=== PATIENT | female | born 1995 | race Caucasian/White ===

== ENCOUNTER 2020-12-06 17:09 | Inpatient (IN) | payer BC ==
[2020-12-06] VITALS (24 sets, daily range): BP systolic 80–123; BP diastolic 46–76
[~2020-12-06] VITALS: Ht 170.2 cm; Wt 60.7 kg
[~2020-12-06 17:09] MED LIST: DOCU100C37 PO; IBUP-1780 PO; OXYC1TAB87 PO; PREN-148 PO
[2020-12-06] MEDS ORDERED: D5 LR IV SOLUTION 1,000 ML IV SCH ×2 (19:00→20:30)
[2020-12-06 20:15] LABS: BASOPHILS % (AUTO) 0 % (0-10); EOSINOPHILS % (AUTO) 0 % (0-10); HEMATOCRIT 38 % (35-52); HEMOGLOBIN 12.9 g/dL (11.5-16.0); LYMPHOCYTES # (AUTO) 1.9 10^3/uL (1.0-4.0); LYMPHOCYTES % (AUTO) 17 % (12-44); MEAN CORPUSCULAR HEMOGLOBIN 30 pg (25-34); MEAN CORPUSCULAR HGB CONC 34 g/dL (32-36); MEAN CORPUSCULAR VOLUME 90 fL (80-99); MEAN PLATELET VOLUME 10.7 fL (9.0-12.2); MONOCYTES # (AUTO) 0.9 10^3/uL (0.0-1.0); MONOCYTES % (AUTO) 8 % (0-12); NEUTROPHILS # (AUTO) 8.4 10^3/uL (1.8-7.8); NEUTROPHILS % (AUTO) 74 % (42-75); PLATELET COUNT 239 10^3/uL (130-400); WHITE BLOOD COUNT 11.3 10^3/uL (4.3-11.0)
--- NOTE | 2020-12-06 20:28 | History & Physical ---
History and Physical Date Seen by Provider: Dec 06, 2020 Time Seen by Provider: 20:24 This patient is a 25-year-old 2 para 1 white female who presented with complaint of contractions and pressure. She is 38 6/7 weeks gestation. She had her other delivery at about 38 weeks gestation. She reports that the way she feels now is what she felt when she was in labor at that time. She denies rupture membranes or bleeding. She does report that contractions have been getting stronger through the day. Her GBS culture after 35 weeks gestation was negative. She has had no problems with this to date. Allergies are none Medications are vitamins Medical social and surgical history is all per the antepartum record HEENT exam is normal Neck is supple no lymphadenopathy no thyromegaly Abdomen is gravid soft nontender nondistended Extremities show no clubbing or cyanosis. There is no Homans' sign. Pelvic exam shows a cervix 4 cm dilated 60% effaced -1 station vertex presentation. membranes are not palpable. AROM was attempted but no fluid was released. Scalp electrode was applied to ensure adequate monitoring and to ensure rupture membrane Assessment and plan 38-6/7 weeks gestation in an uncomplicated in a patient that presented in labor with a history of rapid delivery with her f irst . We will allow an epidural. Amniotomy has been performed. At this point we will manage now expectantly 38 6/7 weeks gestation in labor Allergies and Home Medications Allergies Coded Allergies: No Known Drug Allergies (Unverified , 05/16/18) Home Medications Vit #76/Iron,Carb/FA 1 Each Tablet, 1 EACH PO DAILY, (Reported) Patient Home Medication List Home Medication List Reviewed: Yes NINI SHAH MD Dec 06, 2020 20:28
[2020-12-06] MEDS ORDERED: OXYC1TAB87 PO (20:30)
[2020-12-06] MEDS ORDERED: OXYTOCIN PRE-MIX DRIP 500 ML IV SCH (20:30)
[2020-12-06] MEDS ORDERED: DOCU-143 PO (20:30)
[2020-12-06] MEDS ORDERED: IBUP-1780 PO (20:30)
--- NOTE | 2020-12-06 20:30 | Discharge Inst-Surgical ---
Discharge Inst-Surgical Depart Medication/Instructions New, Converted or Re-Newed RX: RX on Chart Consults/Follow Up Patient Instructions: As directed Orders & Referrals Follow Up Appt: Call to make follow up appt. for patient in 4 weeks. Activity Per routine post vaginal delivery instructions. Please call in RX to patient pharmacy. Diet as tolerated Patient may shower or tub bathe as desired. Activity Activity as Tolerated: No Diet Discharge Diet: No Restrictions NINI SHAH MD Dec 06, 2020 20:30
[2020-12-06] MEDS ORDERED: CATHETER FLUSH 10 ML SYR IV SCH (22:00)
[2020-12-06] MEDS ORDERED: fentaNYL 2 mcg/ml BUPIVA 0.125 100 ML ONE (22:14)
[2020-12-06] MEDS ORDERED: BUPIVACAINE 0.25% 30 ML (SENSORCAINE) VIAL ONE (22:31)
[2020-12-06] MEDS ORDERED: fentaNYL INJECTION 100 MCG/2 ML AMP ONE (22:32)
[2020-12-06] MEDS ORDERED: NALOXONE 0.4 MG/ML 1 ML (NARCAN) VIAL IV PRN (23:30)
[2020-12-06] MEDS ORDERED: CATHETER FLUSH 10 ML SYR IV PRN (23:30)
[2020-12-06] MEDS ORDERED: fentaNYL 2 mcg/ml BUPIVA 0.125 100 ML IV SCH (23:30)
[2020-12-06] MEDS ORDERED: LACTATED RINGERS 1,000 ML IV ONE (23:30)
[2020-12-07] VITALS (42 sets, daily range): BP systolic 73–120; BP diastolic 41–72
[2020-12-07] MEDS ORDERED: OXYTOCIN PRE-MIX DRIP 500 ML IV SCH ×2 (04:30→07:45)
[2020-12-07] MEDS ORDERED: ONDANSETRON 4 MG/2 ML (SDV) Z0FRAN ONE (06:14)
[2020-12-07] MEDS ORDERED: ONDANSETRON 4 MG/2 ML (SDV) Z0FRAN IV ONE (06:23)
[2020-12-07] MEDS ORDERED: oxyCODONE/APAP 5/325MG (PERCOCET 5) TABLET PO PRN (07:45)
[2020-12-07] MEDS ORDERED: BENZOCAINE/MENTHOL (DERMOPLAST) 60 ML CAN TP PRN (07:45)
[2020-12-07] MEDS ORDERED: ONDANSETRON 4 MG/2 ML (SDV) Z0FRAN IVP PRN (07:45)
[2020-12-07] MEDS ORDERED: TETANUS,DIPTH,PERTUSS P/F (BOOSTRIX) 0.5 ML VIAL IM ONE (07:45)
[2020-12-07] MEDS ORDERED: MEASLES,MUMPS,RUBELLA 1 EA INJ SC ONE (07:45)
[2020-12-07] MEDS: KETOROLAC 30 MG/ML VIAL IVP SCH ×2 (09:45→15:37)
--- NOTE | 2020-12-07 11:59 | OPERATIVE REPORT ---
DATE OF SERVICE: 12/07/2020 DELIVERY NOTE The patient delivered by term spontaneous vaginal delivery at 39 weeks gestation, a viable male infant with Apgars of 9 and 9 at 1 and 5 minutes respectively. Weight was 6.4 ounces. time of 7:20 and cord blood pH was 7.26. The was delivered over a first-degree perineal laceration under epidural analgesia. The was bulb suctioned on delivery of the head and again on completion of delivery. Umbilical cord was doubly clamped and cut. The baby was passed to mother's abdomen. The placenta delivered promptly spontaneously Alvares. It was a normal placenta with a small accessory lobe, it did have a 3-vessel cord. The placenta was sent to pathology for permanent section. Cord bloods were obtained prior to delivery of the placenta. The cervix, vagina, rectum, and perineum were examined and found intact, except for small periurethral abrasions that were hemostatic and required no repair and a first-degree perineal laceration that was repaired in the usual manner without difficulty to good reapproximation with a single suture of 3-0 Vicryl Rapide. Sponge and needle counts were correct on completion of the delivery. Blood loss was around 100 mL. The patient tolerated the delivery well and remained in the LDR for recovery. The baby remained with the mom. Job ID: [id number] DocumentID: [id number] Dictated Date: 12/07/2020 07:35:43 Wet Process Technician Date: 12/07/2020 11:59:10 Dictated By: NINI SHAH MD
[2020-12-07 14:19] LABS: BILIRUBIN,URINE NEGATIVE (NEGATIVE); CLARITY,URINE OTHER; COLOR,URINE YELLOW; GLUCOSE, URINE (UA) NEGATIVE (NEGATIVE); KETONES,URINE NEGATIVE (NEGATIVE); LEUKOCYTE ESTERASE ,URINE NEGATIVE (NEGATIVE); NITRITE,URINE NEGATIVE (NEGATIVE); PH,URINE 6.5 (5-9); PROTEIN,URINE NEGATIVE (NEGATIVE)
--- NOTE | 2020-12-07 14:35 | Anesthesia-Regional Post-Op ---
Regional Patient Condition Mental Status: Alert, Oriented x3 Circulation: Same as Pre-Op Headache: Absent Sensation: Full Recovery Motor Block: Absent Post Op Complications Complications None Follow Up Care/Instructions Patient Instructions None needed. Anesthesia/Patient Condition Patient is doing well, no complaints, stable vital signs, no apparent adverse anesthesia problems. JENNIFFER LOMBARDI DO Dec 07, 2020 14:35
[2020-12-07 14:36] LABS: WBC,URINE RARE /HPF
[2020-12-07 14:37] LABS: BACTERIA,URINE FEW /HPF
[2020-12-07] MEDS ORDERED: WITCH HAZEL(TUCKS) 40 EA JAR ONE (17:03)
[2020-12-07] MEDS ORDERED: WITCH HAZEL(TUCKS) 40 EA JAR TOP PRN (17:15)
[2020-12-07] MEDS ORDERED: IBUPROFEN 800 MG (MOTRIN) TAB PO ONE (21:56)
[2020-12-07] MEDS ORDERED: IBUPROFEN 800 MG (MOTRIN) TAB PO SCH (22:00)
[2020-12-07] MEDS: IBUPROFEN 800 MG (MOTRIN) TAB PO SCH (22:06)
[2020-12-07] MEDS: DOCUSATE SODIUM 100 MG (COLACE) CAP PO SCH (22:06)
[2020-12-08 01:28] VITALS: BP 104/59
[2020-12-08] MEDS ORDERED: IBUPROFEN 800 MG (MOTRIN) TAB PO ONE ×2 (04:30→10:58)
[2020-12-08 04:38] VITALS: BP 108/61
[2020-12-08] MEDS: IBUPROFEN 800 MG (MOTRIN) TAB PO SCH ×2 (04:39→11:05)
[2020-12-08 09:40] VITALS: BP 100/59
[2020-12-08] MEDS: DOCUSATE SODIUM 100 MG (COLACE) CAP PO SCH (09:46)
[2020-12-08 12:00] VITALS: BP 100/59
== END 2020-12-08 12:00 | disposition home or self-care (01) | DRG 807 ==
LOC: WSo 17:09 → LDRP 17:09 → WSo 18:47 → LDRP 12-07 12:40
PROVIDERS: ADMIT Obstetrics & Gynecology; ATTEND Obstetrics & Gynecology
PROC: 10E0XZZ Delivery of Products of Conception, External Approach (ICD-10-PCS; principal; 2020-12-07)
DX: O80 Encounter for full-term uncomplicated delivery (principal); Z37.0 Single live birth; Z3A.38 38 weeks gestation of pregnancy; O70.0 First degree perineal laceration during delivery
CPT/HCPCS: 36415; 81000; 82570; 84156; 85025; 86850; 86900; 86901; 87088; 99212